=== PATIENT | male | born 1995 | race Two or more races ===

== ENCOUNTER 2017-08-05 12:50 | Emergency (ER) | payer SELFPAY ==
[~2017-08-05] VITALS: Ht 175.3 cm; Wt 74.8 kg
[2017-08-05 13:43] VITALS: BP 115/59
[2017-08-05] MEDS ORDERED: LIDOCAINE 1% (LOCAL ANESTH.) PF 5ml SDV ONE (14:05)
[2017-08-05] MEDS ORDERED: BACITRACIN TOP OINT 1 UD PKG TOP ONE (14:45)
[2017-08-05 14:58] LABS: Basophils # (auto) 0 uL; Basophils % (auto) 0.4 % (0.0-2.0); Eosinophils # (auto) 0.2 uL; Eosinophils % (auto) 2.5 % (0.0-7.0); Hematocrit 44.3 % (41.0-53.0); Hemoglobin 15.2 g/dL (13.5-17.5); Lymphocytes # (auto) 0.8 uL; Lymphocytes % (auto) 8.5 % (10.0-50.0); Mean Corpuscular Hemoglobin 32.4 pg (28.0-32.0); Mean Corpuscular Hgb Conc. 34.4 g/dL (32.0-36.0); Mean Corpuscular Volume 94.2 fL (80.0-100.0); Monocytes # (auto) 0.6 uL; Monocytes % (auto) 6.8 % (0.0-12.0); Neutrophils # (auto) 7.3 uL; Neutrophils % (auto) 81.8 % (37.0-80.0); Platelet Count (auto) 203 10^3/uL (140-450); Red Cell Distribution Width 12.7 % (11.8-14.3); White Blood Cell 8.9 10^3/uL (4.4-10.8)
[2017-08-05 15:24] LABS: Albumin 4.2 g/dL (3.4-5.0); BUN/Creatinine Ratio 17.5; Bilirubin, Total 0.8 mg/dL (0.2-1.0); Calcium 8.6 mg/dL (8.5-10.1); Potassium 4.1 mmol/L (3.5-5.1)
== END 2017-08-05 15:12 | disposition home or self-care (01) ==
LOC: ER 12:50
DX: S01.81XA Laceration without foreign body of other part of head, initial encounter (principal); R55 Syncope and collapse; X58.XXXA Exposure to other specified factors, initial encounter; Y93.89 Activity, other specified; Y99.8 Other external cause status; Y92.89 Other specified places as the place of occurrence of the external cause
CPT/HCPCS: 12013; 36415; 70450; 80053; 84484; 85025

== ENCOUNTER 2022-09-14 14:37 | Emergency (ER) | payer MEDICAID, OTHER ==
[~2022-09-14] VITALS: Ht 177.8 cm; Wt 73.9 kg
[2022-09-14] MEDS ORDERED: ONDANSETRON ODT 4 MG TAB PO ONE (15:15)
[2022-09-14] MEDS ORDERED: MAALOX PLUS or MAALOX 30 ML PO ONE (15:15)
[2022-09-14] MEDS ORDERED: FAMOTIDINE 20 MG TAB PO ONE (15:15)
[2022-09-14] MEDS ORDERED: LIDOCAINE VISCOUS 2% 15ML UD PO ONE (15:15)
[2022-09-14] MEDS ORDERED: DONNATAL 5ml ORAL Elix (BELLADONNA ALK-PHENOBARB) PO ONE (15:30)
[2022-09-14 15:55] VITALS: BP 129/71
== END 2022-09-14 15:56 | disposition home or self-care (01) ==
LOC: ER 14:37
DX: F10.10 Alcohol abuse, uncomplicated (principal); F14.10 Cocaine abuse, uncomplicated; R11.2 Nausea with vomiting, unspecified; Y90.9 Presence of alcohol in blood, level not specified
CPT/HCPCS: 99284; Q0162

== ENCOUNTER → 2022-12-06 | Emergency (ER) | payer MEDICAID | END | disposition left against medical advice (07) | LOC: ER 20:48 | DX: T22.00XA Burn of unspecified degree of shoulder and upper limb, except wrist and hand, unspecified site, initial encounter (principal); Z53.21 Procedure and treatment not carried out due to patient leaving prior to being seen by health care provider; X08.8XXA Exposure to other specified smoke, fire and flames, initial encounter; Y93.9 Activity, unspecified; Y92.89 Other specified places as the place of occurrence of the external cause; Y99.8 Other external cause status ==